=== PATIENT | female | born 2000 | race Caucasian/White ===

== ENCOUNTER → 2021-07-26 | Outpatient (REF) | payer OTHER | LOC: M LAB REF 16:02 | PROVIDERS: ATTEND Physician Assistant | DX: J02.9 Acute pharyngitis, unspecified (principal) ==

== ENCOUNTER → 2022-05-01 | Outpatient (CLI) | payer OTHER | LOC: M EKG 16:13 | PROVIDERS: ATTEND Obstetrics & Gynecology | DX: R06.02 Shortness of breath (principal) ==

== ENCOUNTER 2022-08-26 07:36 | Inpatient (IN) | payer OTHER ==
[2022-08-26] VITALS (47 sets, daily range): BP systolic 98–146; BP diastolic 51–77
[~2022-08-26] VITALS: Ht 165.1 cm; Wt 101.7 kg
[2022-08-26] MEDS ORDERED: PRENTAB9 PO (08:31)
[2022-08-26] MEDS ORDERED: IRON65TA2 PO (08:31)
[2022-08-26] MEDS ORDERED: VITA100T59 PO (08:32)
[2022-08-26] MEDS ORDERED: HOME MED LIST COMPLETE! XX SCH (08:35)
[2022-08-26 08:41] LABS: HEMATOCRIT 34.5 % (36.0-47.0); HEMOGLOBIN 11.2 g/dl (12.0-15.5); MEAN CORPUSCULAR HEMOGLOBIN 26.9 pg (27.0-33.0); MEAN CORPUSCULAR HGB CONC 32.5 g/dl (32.0-36.5); MEAN CORPUSCULAR VOLUME 82.7 fl (80.0-96.0); PLATELET COUNT, AUTOMATED 262 10^3/uL (150-450); RED BLOOD COUNT 4.17 10^6/uL (4.00-5.40); WHITE BLOOD COUNT 13.9 10^3/uL (4.0-10.0)
[2022-08-26] MEDS ORDERED: METHYLERGONOVINE MALEATE 0.2 MG/ML VIAL (J2210) IM PRN (09:25)
[2022-08-26] MEDS ORDERED: TRANEXAMIC ACID INJection 1,000 MG in NS 100 ML IV PRN (09:25)
[2022-08-26] MEDS ORDERED: LIDOCAINE 1% MDV 20ML VIAL INFIL PRN (09:25)
[2022-08-26] MEDS ORDERED: OXYTOCIN DRIP 30 UNITS in IV 1 EA IV PRN (09:25)
[2022-08-26] MEDS ORDERED: miSOPROStol 50MCG 1/2 TABLET PO ONE (09:55)
[2022-08-26] MEDS ORDERED: OXYTOCIN DRIP 30 UNITS in IV 1 EA IV SCH (17:50)
[2022-08-26] MEDS: LR 1,000 ML IV SCH ×3 (17:55→23:20)
[2022-08-26] MEDS ORDERED: EPIDURAL/PCA KEYS XX PRN (19:40)
[2022-08-26] MEDS ORDERED: NALOXONE INJ 0.4MG/1ML VIAL IV PRN (19:40)
[2022-08-26] MEDS ORDERED: ePHEDrine SULFATE 25 MG/5 ML(5MG/ML) SYRINGE IVP PRN (19:40)
[2022-08-26] MEDS ORDERED: FENTANYL/ROPIVACAINE/NACL BAG 100 ML EPIDURAL SCH (19:40)
[2022-08-26] MEDS ORDERED: diphenhydrAMINE 50MG/ML VIAL IV PRN (19:40)
[2022-08-26] MEDS ORDERED: ONDANSETRON 4MG 2ML VIAL IV PRN (19:40)
[2022-08-26] MEDS ORDERED: LR 500 ML IV PRN (19:40)
[2022-08-27] VITALS (16 sets, daily range): BP systolic 104–168; BP diastolic 51–68
[2022-08-27 03:28] LABS: CORD GAS ABE A -7.5; CORD GAS HCO3 A 22.2 MEQ/L; CORD GAS O2 SAT A 29.6 %; CORD GAS PCO2 A 62.3 mmHg; CORD GAS PH A 7.17 UNITS; CORD GAS PO2 A 18.2 mmHg; CORD GAS SBC A 16.9 MEQ/L; CORD GAS TCO2 A 24.1 MEQ/L
[2022-08-27 03:31] LABS: CORD GAS ABE V -4.8; CORD GAS HCO3 V 22.5 MEQ/L; CORD GAS O2 SAT V 42.9 %; CORD GAS PH V 7.272 UNITS; CORD GAS PO2 V 20.4 mmHg; CORD GAS SBC V 19.2 MEQ/L; CORD GAS TCO2 V 24.1 MEQ/L
[2022-08-27] MEDS ORDERED: METHYLERGONOVINE MALEATE 0.2 MG TAB PO PRN (03:55)
[2022-08-27] MEDS ORDERED: DOCUSATE SODIUM 100MG CAPSULE PO PRN (03:55)
[2022-08-27] MEDS ORDERED: OXYTOCIN DRIP 30 UNITS in IV 1 EA IV SCH ×4 (03:55)
[2022-08-27] MEDS ORDERED: MOM 30ML SUSPENSION UDC PO PRN (03:55)
[2022-08-27] MEDS ORDERED: ACETAMINOPHEN 500 MG TAB PO PRN (03:55)
[2022-08-27] MEDS ORDERED: DIBUCAINE 1% OINTMENT 30GM TOP PRN (03:55)
[2022-08-27] MEDS ORDERED: IBUPROFEN 600MG TAB PO PRN (03:55)
[2022-08-27] MEDS ORDERED: ACETAMINOPHEN TAB 650MG DOSE (2X325MG) PO PRN (03:55)
[2022-08-27] MEDS ORDERED: RHOGAM 300MCG (1500IU) INJ IM SCH (03:55)
[2022-08-27] MEDS ORDERED: IBUPROFEN 800 MG TAB PO PRN (03:55)
[2022-08-27] MEDS: PRENATAL VITAMINS CHEWABLE TABLET PO SCH (09:00)
[2022-08-27] MEDS: LR 1,000 ML IV SCH (09:21)
[2022-08-28 06:00] VITALS: BP 119/62
[2022-08-28] MEDS: PRENATAL VITAMINS CHEWABLE TABLET PO SCH (09:18)
[2022-08-28 18:00] VITALS: BP 121/60
[2022-08-29 05:57] VITALS: BP 117/61
[2022-08-29] MEDS: PRENATAL VITAMINS CHEWABLE TABLET PO SCH (08:32)
[2022-08-29] MEDS ORDERED: MEASLES,MUMPS,RUBELLA VACCINE INJ (MMR-II) SC.IMMUN ONE (09:00)
[2022-08-29] MEDS ORDERED: IBUP-1022 PO (11:00)
[2022-08-29] MEDS ORDERED: ACET1TAB55 PO (11:00)
== END 2022-08-29 12:55 | disposition home or self-care (01) | DRG 807 ==
LOC: M LDI 07:36 → M OBS 08-27 05:54
PROVIDERS: ADMIT Registered Nurse; ATTEND Obstetrics & Gynecology
PROC: 10907ZC Drainage of Amniotic Fluid, Therapeutic from Products of Conception, Via Natural or Artificial Opening (ICD-10-PCS; 2022-08-26)
PROC: 3E0P7GC Introduction of Other Therapeutic Substance into Female Reproductive, Via Natural or Artificial Opening (ICD-10-PCS; 2022-08-26)
PROC: 10E0XZZ Delivery of Products of Conception, External Approach (ICD-10-PCS; principal; 2022-08-27)
PROC: 0HQ9XZZ Repair Perineum Skin, External Approach (ICD-10-PCS; 2022-08-27)
DX: O36.63X0 Maternal care for excessive fetal growth, third trimester, not applicable or unspecified (principal); Z37.0 Single live birth; Z3A.39 39 weeks gestation of pregnancy; O76 Abnormality in fetal heart rate and rhythm complicating labor and delivery; O70.0 First degree perineal laceration during delivery; O69.81X0 Labor and delivery complicated by cord around neck, without compression, not applicable or unspecified